=== PATIENT | female | born 1970 | race Asian ===

== ENCOUNTER 2016-06-26 23:18 | Emergency (ER) | payer OTHER ==
[~2016-06-26] VITALS: Ht 160 cm; Wt 117.9 kg
== END 2016-06-27 00:47 | disposition home or self-care (01) ==
LOC: ED 23:18
DX: R30.9 Painful micturition, unspecified (principal)
CPT/HCPCS: 99281

== ENCOUNTER 2016-12-31 11:40 | Outpatient (CLI) | payer OTHER ==
[2016-12-31 12:24] LABS: PLATELET COUNT 413 K/uL (152-353)
[2016-12-31 14:15] LABS: POTASSIUM 3.5 mmol/L (3.6-5.2)
[2016-12-31 14:46] LABS: SODIUM 136 mmol/L (136-145)
== END 2016-12-31 12:40 | disposition home or self-care (01) ==
LOC: LABW 11:40
PROVIDERS: Family Medicine
DX: E11.9 Type 2 diabetes mellitus without complications (principal); I10 Essential (primary) hypertension; E55.9 Vitamin D deficiency, unspecified; M54.5 Low back pain; E66.01 Morbid (severe) obesity due to excess calories; F41.8 Other specified anxiety disorders
CPT/HCPCS: 36415; 80053; 80061; 81000; 82043; 82306; 82570; 83036; 83735; 84439; 84443; 84550; 85027

== ENCOUNTER 2017-04-16 12:58 | Outpatient (CLI) | payer OTHER ==
[2017-04-16 13:12] LABS: PLATELET COUNT 398 K/uL (152-353)
[2017-04-16 13:32] LABS: SODIUM 135 mmol/L (136-145)
== END 2017-04-16 23:04 | disposition home or self-care (01) ==
LOC: LABW 12:58
PROVIDERS: Family Medicine
DX: N91.1 Secondary amenorrhea (principal); R53.83 Other fatigue
CPT/HCPCS: 36415; 80053; 81000; 84439; 84443; 84702; 85027

== ENCOUNTER 2017-05-21 14:02 | Outpatient (CLI) | payer OTHER ==
[2017-05-21 14:30] LABS: PLATELET COUNT 443 K/uL (152-353)
[2017-05-21 14:54] LABS: POTASSIUM 3.4 mmol/L (3.6-5.2)
== END 2017-05-21 18:18 | disposition home or self-care (01) ==
LOC: LABW 14:02
PROVIDERS: Anesthesiology
DX: E05.80 Other thyrotoxicosis without thyrotoxic crisis or storm (principal); E03.8 Other specified hypothyroidism; E78.2 Mixed hyperlipidemia; E55.9 Vitamin D deficiency, unspecified; E78.01 Familial hypercholesterolemia; R73.09 Other abnormal glucose
CPT/HCPCS: 36415; 80053; 80061; 82248; 82306; 82378; 82607; 82627; 82977; 83036; 84403; 84439; 84443; 84479; 84480; 84481; 85027; 86376

== ENCOUNTER 2018-06-18 13:21 | Outpatient (CLI) | payer OTHER | END 2018-06-18 20:07 | disposition home or self-care (01) | LOC: RAD 13:21 | DX: M54.5 Low back pain (principal) ==